=== PATIENT | female | born 1960 | race Two or more races ===

== ENCOUNTER 2022-07-25 00:29 | Inpatient (IN) | payer OTHER ==
[~2022-07-25] VITALS: Ht 162.6 cm; Wt 42.4 kg
[2022-07-25] MEDS ORDERED: ATROPINE SULF 0.5 MG/5ML SYR ONE (00:39)
[2022-07-25] MEDS ORDERED: DOPamine 1600MCG/ML D5W 250 ML IV ONE ×3 (01:00→10:15)
[2022-07-25] MEDS ORDERED: CALCIUM GLUC 1,000mg/50ml-NS 50 ML IV ONE (01:00)
[2022-07-25] MEDS ORDERED: SODIUM BICARBONATE 8.4% INJ 50ML SYRINGE IV ONE ×2 (01:00→06:00)
[2022-07-25] MEDS ORDERED: ATROPINE SULF 1 MG/10ml SYR IV ONE (01:15)
[2022-07-25 02:21] LABS: Basophils # (auto) 0 10 ^3/uL (0-0.2); Eosinophils # (auto) 0 10 ^3/uL (0-0.8); Lymphocytes # (auto) 0.1 10 ^3/uL (0.4-5.4); Lymphocytes % (auto) 2.6 % (10.0-50.0); Mean Corpuscular Hemoglobin 30.5 pg (28.0-32.0); Monocytes # (auto) 0.2 10 ^3/uL (0-1.3); Neutrophils # (auto) 4.1 10 ^3/uL (1.6-8.6); Nucleated Red Blood Cells % 0.1 %
[2022-07-25 02:22] LABS: Basophils % (auto) 0.2 % (0.0-2.0); Hematocrit 24.9 % (36.0-46.0); Hemoglobin 8.5 g/dL (12.2-16.2); Mean Corpuscular Hgb Conc. 34.2 g/dL (32.0-36.0); Mean Corpuscular Volume 89.2 fL (80.0-100.0); Monocytes % (auto) 4.9 % (0.0-12.0); Neutrophils % (auto) 92.3 % (37.0-80.0); Red Blood Cells 2.79 10^6/uL (4.0-5.20); Red Cell Distribution Width 14.1 % (11.8-14.3); White Blood Cell 4.5 10^3/uL (4.4-10.8)
[2022-07-25 02:37] LABS: INR 1.02 (0.9-1.15); Partial Thromboplastin Time 33.4 sec (24.6-33.4)
[2022-07-25 02:42] LABS: Albumin 3.3 g/dL (3.4-5.0); BUN/Creatinine Ratio 13.2; Calcium 7.8 mg/dL (8.5-10.1); Magnesium 1.8 mg/dL (1.6-2.6)
[2022-07-25 02:45] LABS: Bilirubin, Total 0.7 mg/dL (0.2-1.0); Total Protein 6.5 g/dL (6.4-8.2)
[2022-07-25 02:52] LABS: Potassium 5.6 mmol/L (3.5-5.1)
[2022-07-25] MEDS ORDERED: SODIUM CHLORIDE 0.9% 500 ML IV ONE (04:00)
[2022-07-25] MEDS ORDERED: DEXTROSE (50%) 50ML SYRG IV ONE (06:00)
[2022-07-25] MEDS ORDERED: InsuLIN REG 1unit/0.01ml Soln (100units/ml) IV ONE (06:00)
[2022-07-25 06:57] LABS: BUN/Creatinine Ratio 13.2; Calcium 7.2 mg/dL (8.5-10.1); Potassium 5.2 mmol/L (3.5-5.1)
[2022-07-25 07:00] LABS: Bilirubin, Total 0.6 mg/dL (0.2-1.0); Total Protein 6.1 g/dL (6.4-8.2)
[2022-07-25] MEDS ORDERED: SODIUM CHL 3% 500 ML IV ONE (10:15)
[2022-07-25] MEDS ORDERED: OCTREOTIDE ACETATE 100 MCG/ML VL SUBCUT ONE (10:15)
[2022-07-25] MEDS ORDERED: SODIUM CHL 3% 500 ML IV SCH ×2 (10:32→11:00)
[2022-07-25 10:49] LABS: Magnesium 1.6 mg/dL (1.6-2.6); Phosphorus 8.3 mg/dL (2.5-4.90)
[2022-07-25] MEDS ORDERED: NITROGLYCERIN 0.4 MG SL TAB SL PRN (11:30)
[2022-07-25] MEDS ORDERED: MORPHINE SULFATE INJ 2 MG/ml SYRG IV PRN (11:30)
[2022-07-25] MEDS ORDERED: FUROSEMIDE 40 MG/4 ML VIAL IV ONE (11:45)
[2022-07-25 11:54] LABS: INR 1.03 (0.9-1.15); Partial Thromboplastin Time 33.4 sec (24.6-33.4)
[2022-07-25 12:04] LABS: Cholesterol 203 mg/dL (< 200); HDL Cholesterol 103 mg/dL (40-59); LDL Cholesterol 98 mg/dL (< 100); Triglycerides 48 mg/dL (< 150)
[2022-07-25] MEDS: MEROPENEM 1GM IVPB 100 ML IV SCH (13:11)
[2022-07-25 13:37] LABS: Protein, Urine 160.3 mg/dL (0.0-11.9)
[2022-07-25 13:38] LABS: Alcohol, Urine < 3.0 mg/dL (0-10); Amphetamine Screen, Urine NEGATIVE (NEGATIVE); Barbiturate Scree,Urine NEGATIVE (NEGATIVE); Benzodiazephine Screen, Urine NEGATIVE (NEGATIVE); Cannabinoid Screen, Urine NEGATIVE (NEGATIVE); Cocaine Screen, Urine NEGATIVE (NEGATIVE); Opiate Scree,Urine NEGATIVE (NEGATIVE); Phencyclidine Screen, Urine NEGATIVE (NEGATIVE)
[2022-07-25] MEDS: NOREPINEPHRINE 8 MG/250ML KIT 250 ML IV SCH (13:52)
[2022-07-25 14:00] LABS: Urine Blood Negative /uL (Negative)
[2022-07-25] MEDS ORDERED: SODIUM BICARB 50ML SYR 50 ML in SODIUM CHLORIDE 0.9% 1,000 ML IV SCH (16:40)
[2022-07-25] MEDS: CALCIUM ACETATE 667 MG CAP PO SCH (21:00)
[2022-07-25 21:31] LABS: Basophils # (auto) 0 10 ^3/uL (0-0.2)
[2022-07-25 21:34] LABS: Basophils % (auto) 0.1 % (0.0-2.0); Eosinophils # (auto) 0 10 ^3/uL (0-0.8); Eosinophils % (auto) 0.1 % (0.0-7.0); Hematocrit 21.6 % (36.0-46.0); Hemoglobin 7.6 g/dL (12.2-16.2); Lymphocytes # (auto) 0.2 10 ^3/uL (0.4-5.4); Lymphocytes % (auto) 3.4 % (10.0-50.0); Mean Corpuscular Hemoglobin 31.1 pg (28.0-32.0); Mean Corpuscular Hgb Conc. 35.3 g/dL (32.0-36.0); Monocytes # (auto) 0.5 10 ^3/uL (0-1.3); Monocytes % (auto) 9.7 % (0.0-12.0); Neutrophils # (auto) 4.6 10 ^3/uL (1.6-8.6); Neutrophils % (auto) 86.7 % (37.0-80.0); Red Blood Cells 2.46 10^6/uL (4.0-5.20); White Blood Cell 5.3 10^3/uL (4.4-10.8)
[2022-07-25 21:44] LABS: Albumin 2.7 g/dL (3.4-5.0); Calcium 7.2 mg/dL (8.5-10.1); Potassium 3.5 mmol/L (3.5-5.1)
[2022-07-25 21:48] LABS: BUN/Creatinine Ratio 12.5; Bilirubin, Total 0.7 mg/dL (0.2-1.0); Total Protein 5.2 g/dL (6.4-8.2)
[2022-07-25] MEDS ORDERED: DESMOPRESSIN ACET 4 MCG/1 ML AMPULE IV ONE (22:15)
[2022-07-25] MEDS ORDERED: DEXTROSE (50%) 50ML SYRG IV PRN (22:15)
[2022-07-25] MEDS ORDERED: POTASSIUM CHLORIDE 20 MEQ in D5W 5% 1,000 ML IV SCH (22:15)
[2022-07-25] MEDS: HEPARIN SODIUM (PORCINE) 5000 UNITS/ML 1ML VIAL SC SCH (22:37)
[2022-07-26] MEDS: ACCU-CHEK COMFORT CURVE STRIP VI SCH ×7 (00:01→20:00)
[2022-07-26] MEDS: MEROPENEM 1GM IVPB 100 ML IV SCH ×2 (00:46→13:17)
[2022-07-26] MEDS: InsuLIN REG 1unit/0.01ml Soln (100units/ml) SC SCH ×6 (03:36→20:51)
[2022-07-26 04:57] LABS: Basophils # (auto) 0 10 ^3/uL (0-0.2); Basophils % (auto) 0.2 % (0.0-2.0); Eosinophils # (auto) 0 10 ^3/uL (0-0.8); Eosinophils % (auto) 0.2 % (0.0-7.0); Hemoglobin 7.3 g/dL (12.2-16.2); Lymphocytes # (auto) 0.2 10 ^3/uL (0.4-5.4); Mean Corpuscular Hemoglobin 30.5 pg (28.0-32.0); White Blood Cell 3.6 10^3/uL (4.4-10.8)
[2022-07-26 05:02] LABS: Hematocrit 21.1 % (36.0-46.0); Lymphocytes % (auto) 4.6 % (10.0-50.0); Mean Corpuscular Hgb Conc. 34.6 g/dL (32.0-36.0); Mean Corpuscular Volume 88.3 fL (80.0-100.0); Monocytes # (auto) 0.4 10 ^3/uL (0-1.3); Monocytes % (auto) 11.8 % (0.0-12.0); Neutrophils % (auto) 83.2 % (37.0-80.0); Nucleated Red Blood Cells % 0.5 %; Red Blood Cells 2.39 10^6/uL (4.0-5.20)
[2022-07-26 05:13] LABS: Albumin 2.5 g/dL (3.4-5.0); BUN/Creatinine Ratio 10.8; Calcium 6.5 mg/dL (8.5-10.1); Potassium 3.6 mmol/L (3.5-5.1)
[2022-07-26 05:16] LABS: Bilirubin, Total 0.4 mg/dL (0.2-1.0); Total Protein 4.7 g/dL (6.4-8.2)
[2022-07-26] MEDS ORDERED: SODIUM CHL 0.9% 1000 ML BAG XX ONE (07:00)
[2022-07-26] MEDS ORDERED: D5W 5% 1,000 ML IV SCH (07:15)
[2022-07-26] MEDS: CALCIUM ACETATE 667 MG CAP PO SCH ×5 (08:00→19:04)
[2022-07-26] MEDS: D5W 5% 1,000 ML IV SCH ×2 (09:13→17:53)
[2022-07-26] MEDS ORDERED: DESMOPRESSIN ACET 4 MCG/1 ML AMPULE IV SCH (10:00)
[2022-07-26] MEDS: DESMOPRESSIN ACET 4 MCG/1 ML AMPULE IV ONE ×2 (10:44→13:00)
[2022-07-26] MEDS: HEPARIN SODIUM (PORCINE) 5000 UNITS/ML 1ML VIAL SC SCH (10:45)
[2022-07-26] MEDS: NOREPINEPHRINE 8 MG/250ML KIT 250 ML IV SCH (10:53)
[2022-07-26 17:06] LABS: % Iron Saturation 22.6 % (15-50)
[2022-07-26 18:37] LABS: Ferritin 64.9 ng/mL (10-322)
[2022-07-26 18:39] LABS: Folate (Folic Acid) 10.59 ng/mL (5.38-24)
[2022-07-26] MEDS ORDERED: EPOETIN ALFA-EPBX 10,000 UNIT/1ML VIAL SC ONE (21:00)
[2022-07-26] MEDS: cloNIDine HCL 0.1 MG TAB PO PRN (21:24)
[2022-07-26 22:20] VITALS: BP 155/84
[2022-07-26 22:52] VITALS: BP 155/84
[2022-07-27] MEDS: HEPARIN SODIUM (PORCINE) 5000 UNITS/ML 1ML VIAL SC SCH ×3 (00:02→21:14)
[2022-07-27] MEDS: MEROPENEM 1GM IVPB 100 ML IV SCH ×3 (00:03→23:54)
[2022-07-27] MEDS: ACCU-CHEK COMFORT CURVE STRIP VI SCH ×7 (00:03→23:54)
[2022-07-27] MEDS: InsuLIN REG 1unit/0.01ml Soln (100units/ml) SC SCH ×7 (03:45→23:54)
[2022-07-27] MEDS: D5W 5% 1,000 ML IV SCH ×2 (03:46→08:17)
[2022-07-27] MEDS ORDERED: LABETALOL HCL 5 MG/ML 4ML SYRINGE IV ONE (04:30)
[2022-07-27 05:00] VITALS: BP 163/84
[2022-07-27 06:53] LABS: Calcium 7.3 mg/dL (8.5-10.1); Potassium 3.6 mmol/L (3.5-5.1)
[2022-07-27 06:56] LABS: BUN/Creatinine Ratio 7.2
[2022-07-27] MEDS: NOREPINEPHRINE 8 MG/250ML KIT 250 ML IV SCH (07:27)
[2022-07-27] MEDS: CALCIUM ACETATE 667 MG CAP PO SCH ×3 (08:14→18:22)
[2022-07-27 08:49] VITALS: BP 154/75
[2022-07-27] MEDS ORDERED: IPRATROPIUM BROM 0.5 MG/2.5ML INH SOL NEB SCH (12:30)
[2022-07-27 12:31] VITALS: BP 154/75
[2022-07-27 13:37] VITALS: BP 155/78
[2022-07-27 16:46] VITALS: BP 154/0
[2022-07-27] MEDS: CALCITRIOL 0.25 MCG CAP PO SCH (18:22)
[2022-07-27] MEDS: IPRATROPIUM BROM 0.5 MG/2.5ML INH SOL NEB SCH (18:31)
[2022-07-27] MEDS: cloNIDine HCL 0.1 MG TAB PO PRN (21:10)
[2022-07-27] MEDS: ATORVASTATIN 20 MG TAB PO SCH (21:10)
[2022-07-27 22:00] VITALS: BP 173/84
[2022-07-28] VITALS (10 sets, daily range): BP systolic 151–174; BP diastolic 77–91
[2022-07-28] MEDS: D5W 5% 1,000 ML IV SCH (02:59)
[2022-07-28] MEDS: InsuLIN REG 1unit/0.01ml Soln (100units/ml) SC SCH ×5 (04:00→20:00)
[2022-07-28] MEDS: ACCU-CHEK COMFORT CURVE STRIP VI SCH ×5 (04:18→20:25)
[2022-07-28] MEDS: IPRATROPIUM BROM 0.5 MG/2.5ML INH SOL NEB SCH ×4 (06:20→18:29)
[2022-07-28] MEDS: ALBUTEROL SULF 2.5 MG/0.5ML(0.5%) NEB SOLN NEB PRN ×3 (06:20→18:28)
[2022-07-28 06:43] LABS: Basophils # (auto) 0 10 ^3/uL (0-0.2); Eosinophils % (auto) 1.1 % (0.0-7.0); Hemoglobin 7.4 g/dL (12.2-16.2); Lymphocytes # (auto) 0.6 10 ^3/uL (0.4-5.4); Mean Corpuscular Hemoglobin 30.5 pg (28.0-32.0); Monocytes # (auto) 0.5 10 ^3/uL (0-1.3); Nucleated Red Blood Cells % 0.1 %
[2022-07-28 06:46] LABS: Basophils % (auto) 0.6 % (0.0-2.0); Eosinophils # (auto) 0.1 10 ^3/uL (0-0.8); Hematocrit 21.3 % (36.0-46.0); Lymphocytes % (auto) 12.7 % (10.0-50.0); Mean Corpuscular Hgb Conc. 34.5 g/dL (32.0-36.0); Mean Corpuscular Volume 88.5 fL (80.0-100.0); Monocytes % (auto) 10.1 % (0.0-12.0); Neutrophils # (auto) 3.5 10 ^3/uL (1.6-8.6); Neutrophils % (auto) 75.5 % (37.0-80.0); Red Blood Cells 2.41 10^6/uL (4.0-5.20); Red Cell Distribution Width 13.6 % (11.8-14.3); White Blood Cell 4.7 10^3/uL (4.4-10.8)
[2022-07-28 06:58] LABS: INR 0.94 (0.9-1.15); Partial Thromboplastin Time 35.3 sec (24.6-33.4)
[2022-07-28] MEDS ORDERED: SODIUM CHL 0.9% 1000 ML BAG XX ONE (07:00)
[2022-07-28 07:02] LABS: BUN/Creatinine Ratio 6.5; Calcium 7.7 mg/dL (8.5-10.1); Potassium 3.8 mmol/L (3.5-5.1)
[2022-07-28] MEDS: CALCIUM ACETATE 667 MG CAP PO SCH ×3 (08:00→18:48)
[2022-07-28] MEDS: HEPARIN SODIUM (PORCINE) 5000 UNITS/ML 1ML VIAL SC SCH ×2 (09:29→23:19)
[2022-07-28] MEDS: amLODIPine BESYLATE 5 MG TAB PO SCH (09:31)
[2022-07-28] MEDS: METOPROLOL SUCCINATE XL 50 MG TAB PO SCH (09:31)
[2022-07-28] MEDS: CALCITRIOL 0.25 MCG CAP PO SCH (09:31)
[2022-07-28] MEDS ORDERED: METOPROLOL TARTRATE 50 MG TAB PO SCH (10:00)
[2022-07-28] MEDS ORDERED: LIDOCAINE 2%HCL (LOCAL ANESTH.) INJ 10ml MDV ONE ×2 (13:26→13:31)
[2022-07-28] MEDS ORDERED: fentaNYL CITRATE 100 MCG/2 ML VL ONE (13:29)
[2022-07-28] MEDS ORDERED: HEPARIN SODIUM (PORCINE) 5000 UNITS/ML 1ML VIAL ONE (13:45)
[2022-07-28] MEDS: MEROPENEM 1GM IVPB 100 ML IV SCH (17:29)
[2022-07-28] MEDS ORDERED: EPOETIN ALFA-EPBX 10,000 UNIT/1ML VIAL SC ONE (21:00)
[2022-07-28] MEDS: ATORVASTATIN 20 MG TAB PO SCH (23:15)
[2022-07-29] MEDS: ALBUTEROL SULF 2.5 MG/0.5ML(0.5%) NEB SOLN NEB PRN ×2 (00:55→18:20)
[2022-07-29] MEDS: IPRATROPIUM BROM 0.5 MG/2.5ML INH SOL NEB SCH ×4 (00:55→18:20)
[2022-07-29] MEDS: ACCU-CHEK COMFORT CURVE STRIP VI SCH ×4 (01:00→14:16)
[2022-07-29] MEDS: MEROPENEM 1GM IVPB 100 ML IV SCH ×2 (01:12→14:31)
[2022-07-29 04:00] VITALS: BP 141/76
[2022-07-29] MEDS: InsuLIN REG 1unit/0.01ml Soln (100units/ml) SC SCH ×4 (04:00→12:00)
[2022-07-29 05:00] VITALS: BP 141/76
[2022-07-29 06:13] LABS: Basophils # (auto) 0 10 ^3/uL (0-0.2); Eosinophils # (auto) 0 10 ^3/uL (0-0.8); Lymphocytes # (auto) 0.5 10 ^3/uL (0.4-5.4); Monocytes # (auto) 0.5 10 ^3/uL (0-1.3); Neutrophils # (auto) 2.3 10 ^3/uL (1.6-8.6); Red Blood Cells 2.25 10^6/uL (4.0-5.20); White Blood Cell 3.4 10^3/uL (4.4-10.8)
[2022-07-29 06:15] LABS: Basophils % (auto) 1.1 % (0.0-2.0); Hematocrit 20.1 % (36.0-46.0); Lymphocytes % (auto) 14.8 % (10.0-50.0); Mean Corpuscular Hemoglobin 30.6 pg (28.0-32.0); Mean Corpuscular Hgb Conc. 34.3 g/dL (32.0-36.0); Mean Corpuscular Volume 89.3 fL (80.0-100.0); Monocytes % (auto) 14.1 % (0.0-12.0); Red Cell Distribution Width 13.8 % (11.8-14.3)
[2022-07-29 06:33] LABS: Calcium 7.8 mg/dL (8.5-10.1); Potassium 3.8 mmol/L (3.5-5.1)
[2022-07-29 06:35] LABS: BUN/Creatinine Ratio 5.4
[2022-07-29 07:01] LABS: Hemoglobin 6.9 g/dL (12.2-16.2)
[2022-07-29] MEDS: CALCITRIOL 0.25 MCG CAP PO SCH (08:56)
[2022-07-29] MEDS: CALCIUM ACETATE 667 MG CAP PO SCH ×3 (08:56→17:04)
[2022-07-29] MEDS: METOPROLOL SUCCINATE XL 50 MG TAB PO SCH (08:57)
[2022-07-29] MEDS: amLODIPine BESYLATE 5 MG TAB PO SCH (08:58)
[2022-07-29 09:00] VITALS: BP 169/85
[2022-07-29] MEDS: HEPARIN SODIUM (PORCINE) 5000 UNITS/ML 1ML VIAL SC SCH ×2 (09:04→22:08)
[2022-07-29 11:58] LABS: Hematocrit 22.1 % (36.0-46.0); Hemoglobin 7.3 g/dL (12.2-16.2)
[2022-07-29 13:00] VITALS: BP 160/75
[2022-07-29 13:25] LABS: BUN/Creatinine Ratio 5.7; Calcium 8.2 mg/dL (8.5-10.1); Potassium 3.8 mmol/L (3.5-5.1)
[2022-07-29 17:00] VITALS: BP 168/88
[2022-07-29 22:00] VITALS: BP 170/88
[2022-07-29] MEDS: ATORVASTATIN 20 MG TAB PO SCH (22:06)
[2022-07-29] MEDS: cloNIDine HCL 0.1 MG TAB PO PRN (22:07)
[2022-07-30] VITALS (11 sets, daily range): BP systolic 133–165; BP diastolic 70–80
[2022-07-30] MEDS: ALBUTEROL SULF 2.5 MG/0.5ML(0.5%) NEB SOLN NEB PRN ×3 (00:55→18:14)
[2022-07-30] MEDS: IPRATROPIUM BROM 0.5 MG/2.5ML INH SOL NEB SCH ×4 (00:55→18:14)
[2022-07-30] MEDS: MEROPENEM 1GM IVPB 100 ML IV SCH ×3 (01:16→23:35)
[2022-07-30] MEDS ORDERED: HALOPERIDOL LACTATE 5 MG/ML INJ VIAL ONE (05:23)
[2022-07-30 06:30] LABS: Calcium 8.4 mg/dL (8.5-10.1); Potassium 4.2 mmol/L (3.5-5.1)
[2022-07-30 06:32] LABS: BUN/Creatinine Ratio 7.7
[2022-07-30 07:00] LABS: Basophils # (auto) 0 10 ^3/uL (0-0.2); Eosinophils # (auto) 0.2 10 ^3/uL (0-0.8)
[2022-07-30 07:02] LABS: Basophils % (auto) 0.6 % (0.0-2.0); Eosinophils % (auto) 3.5 % (0.0-7.0); Hematocrit 19.4 % (36.0-46.0); Lymphocytes % (auto) 19.9 % (10.0-50.0); Mean Corpuscular Hemoglobin 30.1 pg (28.0-32.0); Mean Corpuscular Hgb Conc. 33.1 g/dL (32.0-36.0); Monocytes # (auto) 0.8 10 ^3/uL (0-1.3); Monocytes % (auto) 16.3 % (0.0-12.0); Neutrophils # (auto) 2.9 10 ^3/uL (1.6-8.6); Neutrophils % (auto) 59.7 % (37.0-80.0); Nucleated Red Blood Cells % 0.2 %; Red Blood Cells 2.14 10^6/uL (4.0-5.20); Red Cell Distribution Width 13.7 % (11.8-14.3); White Blood Cell 4.9 10^3/uL (4.4-10.8)
[2022-07-30 07:52] LABS: Hemoglobin 6.4 g/dL (12.2-16.2)
[2022-07-30] MEDS: METOPROLOL SUCCINATE XL 50 MG TAB PO SCH (09:56)
[2022-07-30] MEDS: CALCITRIOL 0.25 MCG CAP PO SCH (09:57)
[2022-07-30] MEDS: CALCIUM ACETATE 667 MG CAP PO SCH ×3 (09:57→17:22)
[2022-07-30] MEDS: amLODIPine BESYLATE 5 MG TAB PO SCH (09:57)
[2022-07-30] MEDS: HEPARIN SODIUM (PORCINE) 5000 UNITS/ML 1ML VIAL SC SCH ×2 (10:03→21:49)
[2022-07-30] MEDS ORDERED: BUMETANIDE 2.5mg/10ml (0.25 mg/ml) INJ IV ONE (12:45)
[2022-07-30] MEDS: cloNIDine HCL 0.1 MG TAB PO PRN (16:48)
[2022-07-30] MEDS ORDERED: FUROSEMIDE 20 MG/2 ML VIAL IV ONE (17:00)
[2022-07-30] MEDS: ATORVASTATIN 20 MG TAB PO SCH (21:24)
[2022-07-31] VITALS (9 sets, daily range): BP systolic 133–156; BP diastolic 62–89
[2022-07-31] MEDS: IPRATROPIUM BROM 0.5 MG/2.5ML INH SOL NEB SCH ×3 (00:15→11:57)
[2022-07-31] MEDS: ALBUTEROL SULF 2.5 MG/0.5ML(0.5%) NEB SOLN NEB PRN ×2 (00:15→11:57)
[2022-07-31 05:40] LABS: Hemoglobin 7.1 g/dL (12.2-16.2); Lymphocytes # (auto) 0.9 10 ^3/uL (0.4-5.4); Monocytes # (auto) 0.8 10 ^3/uL (0-1.3); Neutrophils # (auto) 3.4 10 ^3/uL (1.6-8.6); Nucleated Red Blood Cells % 0.1 %; Red Blood Cells 2.34 10^6/uL (4.0-5.20); White Blood Cell 5.3 10^3/uL (4.4-10.8)
[2022-07-31 05:44] LABS: Basophils # (auto) 0.1 10 ^3/uL (0-0.2); Basophils % (auto) 1.2 % (0.0-2.0); Eosinophils # (auto) 0.2 10 ^3/uL (0-0.8); Lymphocytes % (auto) 16.6 % (10.0-50.0); Mean Corpuscular Hemoglobin 30.3 pg (28.0-32.0); Mean Corpuscular Hgb Conc. 33.8 g/dL (32.0-36.0); Mean Corpuscular Volume 89.7 fL (80.0-100.0); Monocytes % (auto) 14.4 % (0.0-12.0); Neutrophils % (auto) 64.8 % (37.0-80.0); Red Cell Distribution Width 13.8 % (11.8-14.3)
[2022-07-31 05:49] LABS: BUN/Creatinine Ratio 8.2; Calcium 8.3 mg/dL (8.5-10.1); Potassium 4.1 mmol/L (3.5-5.1)
[2022-07-31] MEDS ORDERED: SODIUM CHL 0.9% 1000 ML BAG XX ONE (07:00)
[2022-07-31] MEDS: CALCIUM ACETATE 667 MG CAP PO SCH ×3 (08:00→18:55)
[2022-07-31] MEDS: CALCITRIOL 0.25 MCG CAP PO SCH (10:18)
[2022-07-31] MEDS: amLODIPine BESYLATE 5 MG TAB PO SCH (10:18)
[2022-07-31] MEDS: METOPROLOL SUCCINATE XL 50 MG TAB PO SCH (10:19)
[2022-07-31] MEDS: HEPARIN SODIUM (PORCINE) 5000 UNITS/ML 1ML VIAL SC SCH (10:20)
[2022-07-31 11:04] LABS: Hepatitis B Surface Antibody Negative (Negative)
[2022-07-31 12:05] LABS: Hepatitis A Total Antibody Positive (Negative)
[2022-07-31] MEDS: MEROPENEM 1GM IVPB 100 ML IV SCH (12:19)
[2022-07-31 14:24] LABS: Hepatitis C Antibody Negative (Negative)
[2022-07-31 14:41] LABS: Hepatitis B Core IgM Negative
[2022-07-31 16:50] LABS: Hematocrit 30.1 % (36.0-46.0); Hemoglobin 10.5 g/dL (12.2-16.2)
[2022-07-31] MEDS ORDERED: EPOETIN ALFA-EPBX 10,000 UNIT/1ML VIAL SC ONE (21:00)
== END 2022-07-31 19:27 | disposition home or self-care (01) | DRG 871 ==
LOC: ER 00:29 → EDBD 00:29 → TELE 11:23 → TELE-CENTR 07-26 22:20 → TELE 07-28 10:18 → TELE-CENTR 07-28 10:36
PROVIDERS: ADMIT Registered Nurse; ATTEND Internal Medicine
PROC: 5A1D70Z Performance of Urinary Filtration, Intermittent, Less than 6 Hours Per Day (ICD-10-PCS; 2022-07-25)
PROC: 5A1D70Z Performance of Urinary Filtration, Intermittent, Less than 6 Hours Per Day (ICD-10-PCS; 2022-07-26)
PROC: 0JH63XZ Insertion of Tunneled Vascular Access Device into Chest Subcutaneous Tissue and Fascia, Percutaneous Approach (ICD-10-PCS; principal; 2022-07-28)
PROC: 02HV33Z Insertion of Infusion Device into Superior Vena Cava, Percutaneous Approach (ICD-10-PCS; 2022-07-28)
PROC: B518YZA Fluoroscopy of Superior Vena Cava using Other Contrast, Guidance (ICD-10-PCS; 2022-07-28)
PROC: B548ZZA Ultrasonography of Superior Vena Cava, Guidance (ICD-10-PCS; 2022-07-28)
PROC: 30233N1 Transfusion of Nonautologous Red Blood Cells into Peripheral Vein, Percutaneous Approach (ICD-10-PCS; 2022-07-28)
PROC: 5A1D70Z Performance of Urinary Filtration, Intermittent, Less than 6 Hours Per Day (ICD-10-PCS; 2022-07-28)
PROC: 5A1D70Z Performance of Urinary Filtration, Intermittent, Less than 6 Hours Per Day (ICD-10-PCS; 2022-07-31)
DX: A41.9 Sepsis, unspecified organism (principal); J81.0 Acute pulmonary edema; N18.6 End stage renal disease; J90 Pleural effusion, not elsewhere classified; E87.1 Hypo-osmolality and hyponatremia; N17.9 Acute kidney failure, unspecified; I12.0 Hypertensive chronic kidney disease with stage 5 chronic kidney disease or end stage renal disease; D62 Acute posthemorrhagic anemia; Z68.1 Body mass index [BMI] 19.9 or less, adult; E66.9 Obesity, unspecified; E87.5 Hyperkalemia; I27.20 Pulmonary hypertension, unspecified; R00.1 Bradycardia, unspecified; E78.5 Hyperlipidemia, unspecified; D63.1 Anemia in chronic kidney disease; Z99.2 Dependence on renal dialysis; Z20.822 Contact with and (suspected) exposure to COVID-19
CPT/HCPCS: 36415; 36600; 70450; 71045; 71250; 74176; 76942; 80048; 80053; 80061; 80307; 81003; 82140; 82570; 82607; 82728; 82746; 82805; 82962; 83036; 83540; 83550; 83605; 83615; 83735; 83880; 83935; 83970; 84100; 84156; 84295; 84300; 84443; 84484; 85014; 85018; 85025; 85045; 85610; 85730; 86704; 86705; 86706; 86708; 86803; 86850; 86870; 86900; 86901; 86902; 86922; 87040; 87081; 87340; 87426; 90935; 93005; 93306; 93886; 94640; 96361; 96365; 96375; 97110; 97116; 97530; 99152; 99291; G0378; J0461; J1642; J1815; J2001; J2185; J3490

== ENCOUNTER 2023-01-31 21:58 | Emergency (ER) | payer OTHER ==
[~2023-01-31] VITALS: Ht 149.9 cm; Wt 33.7 kg
[2023-01-31 23:36] LABS: Basophils # (auto) 0.1 10 ^3/uL (0-0.2); Eosinophils # (auto) 0.1 10 ^3/uL (0-0.8); Hemoglobin 11.2 g/dL (12.2-16.2); Monocytes # (auto) 0.5 10 ^3/uL (0-1.3); Neutrophils # (auto) 3.3 10 ^3/uL (1.6-8.6); Red Cell Distribution Width 13.8 % (11.8-14.3); White Blood Cell 5.1 10^3/uL (4.4-10.8)
[2023-01-31 23:38] LABS: Basophils % (auto) 1.5 % (0.0-2.0); Eosinophils % (auto) 2.4 % (0.0-7.0); Hematocrit 33.1 % (36.0-46.0); Lymphocytes % (auto) 19.5 % (10.0-50.0); Mean Corpuscular Hemoglobin 34.9 pg (28.0-32.0); Mean Corpuscular Hgb Conc. 33.9 g/dL (32.0-36.0); Mean Corpuscular Volume 102.9 fL (80.0-100.0); Monocytes % (auto) 10.7 % (0.0-12.0); Neutrophils % (auto) 65.9 % (37.0-80.0); Nucleated Red Blood Cells % 0.1 %; Red Blood Cells 3.21 10^6/uL (4.0-5.20)
[2023-01-31 23:43] LABS: Albumin 3.6 g/dL (3.4-5.0); BUN/Creatinine Ratio 6.4 (10.0-20.0); Calcium 8.2 mg/dL (8.5-10.1)
[2023-01-31 23:45] LABS: Bilirubin, Total 0.5 mg/dL (0.2-1.0); Total Protein 7.5 g/dL (6.4-8.2)
[2023-01-31 23:46] LABS: INR 0.92 (0.9-1.15); Partial Thromboplastin Time 34.4 sec (24.6-33.4)
[2023-02-01 02:12] VITALS: BP 126/59
== END 2023-02-01 04:13 | disposition home or self-care (01) ==
LOC: ER 22:02
DX: T82.838D Hemorrhage due to vascular prosthetic devices, implants and grafts, subsequent encounter (principal); I10 Essential (primary) hypertension
CPT/HCPCS: 36415; 80053; 85025; 85610; 85730; 86850; 86870; 86900; 86901

== ENCOUNTER 2024-05-23 18:20 | Emergency (ER) | payer OTHER ==
[2024-05-23 19:45] LABS: Basophils # (auto) 0.1 10 ^3/uL (0-0.2); Basophils % (auto) 1.6 % (0.0-2.0); Eosinophils # (auto) 0.1 10 ^3/uL (0-0.8); Eosinophils % (auto) 1.8 % (0.0-7.0); Hematocrit 19.6 % (36.0-46.0); Lymphocytes # (auto) 0.9 10 ^3/uL (0.4-5.4); Lymphocytes % (auto) 20.3 % (10.0-50.0); Mean Corpuscular Hemoglobin 32.5 pg (28.0-32.0); Mean Corpuscular Hgb Conc. 33.7 g/dL (32.0-36.0); Mean Corpuscular Volume 96.6 fL (80.0-100.0); Monocytes # (auto) 0.7 10 ^3/uL (0-1.3); Monocytes % (auto) 14.5 % (0.0-12.0); Neutrophils # (auto) 2.9 10 ^3/uL (1.6-8.6); Neutrophils % (auto) 61.8 % (37.0-80.0); Nucleated Red Blood Cells % 0.4 %; Platelet Count (auto) 179 10^3/uL (140-450); Red Blood Cells 2.03 10^6/uL (4.0-5.20); Red Cell Distribution Width 15.3 % (11.8-14.3); White Blood Cell 4.6 10^3/uL (4.4-10.8)
[2024-05-23 19:51] LABS: Hemoglobin 6.6 g/dL (12.2-16.2)
[2024-05-23 20:04] LABS: Alanine Aminotransferase 18 U/L (7-40); Albumin 4.1 g/dL (3.2-4.8); Alkaline Phosphatase 96 U/L (46-116); Anion Gap 6 (5-15); Aspartate Aminotransferase 16 U/L (13-40); BUN/Creatinine Ratio 5.4 (10.0-20.0); Bilirubin, Total 0.3 mg/dL (0.2-1.0); Blood Urea Nitrogen 12 mg/dL (9-23); Calcium 9.3 mg/dL (8.7-10.4); Carbon Dioxide 30 mmol/L (20-31); Chloride 104 mmol/L (98-107); Glucose 121 mg/dL (74-106); Potassium 3.2 mmol/L (3.5-5.1); Sodium 140 mmol/L (136-145); Total Protein 6.8 g/dL (5.7-8.2)
[2024-05-23 20:47] LABS: % Iron Saturation 82.9 % (15-50)
[2024-05-23 21:01] LABS: Ferritin 1271.4 ng/mL (10-291)
[2024-05-23 22:10] VITALS: PULSE 71; RESP 13; O2SAT 94
[2024-05-24 01:05] VITALS: BP 159/63; PULSE 75; RESP 14; TEMP 98.7
[2024-05-24 01:09] VITALS: BP 161/64; PULSE 75; RESP 15; TEMP 98.8
[2024-05-24 01:24] VITALS: BP 161/71; PULSE 77; RESP 14; TEMP 98.8
[2024-05-24 03:25] VITALS: BP 162/71; PULSE 69; RESP 13; TEMP 99
[2024-05-24 03:30] VITALS: BP 163/67; PULSE 72; RESP 14; TEMP 98.8
[2024-05-24 04:13] VITALS: BP 161/67; PULSE 98; RESP 14; TEMP 98.5; O2SAT 98
[2024-05-24 08:51] LABS: Folate (Folic Acid) 33.09 ng/mL (>5.38)
== END 2024-05-24 04:17 | disposition short-term general hospital (02) ==
LOC: ER 18:20
DX: I12.0 Hypertensive chronic kidney disease with stage 5 chronic kidney disease or end stage renal disease (principal); N18.6 End stage renal disease; D64.9 Anemia, unspecified; Z99.2 Dependence on renal dialysis
CPT/HCPCS: 36415; 36430; 80053; 82607; 82728; 82746; 83540; 83550; 83615; 85025; 85045; 86850; 86870; 86900; 86901; 99285; P9016; 86922